=== PATIENT | male | born 1990 | race Caucasian/White ===

== ENCOUNTER 2021-12-27 21:55 | Inpatient (IN) | payer MEDICAID ==
[~2021-12-27] VITALS: Ht 180.3 cm; Wt 100.0 kg
[2021-12-27] MEDS ORDERED: PROPOFOL 10MG/ML 100ML 100 ML IV ONE (22:45)
[2021-12-27] MEDS ORDERED: SODIUM CHLORIDE 0.9% 1000ML BAG (SEPSIS BOLUS) IV ONE (22:45)
[2021-12-27] MEDS ORDERED: EPINEPHRINE 5 MG in SODIUM CHLORIDE 0.9% 245 ML IV PRN ×4 (22:45)
[2021-12-27 23:28] LABS: BASOPHILS % 0.7 % (0.0-2.0); EOSINOPHILS % 2.2 % (0.0-5.0); HEMOGLOBIN. 11.8 g/dL (14.0-18.0); LYMPHOCYTES % 56.7 % (20.0-50.0); MEAN CORPUSCULAR VOLUME 93.4 fL (80.0-94.0); MEAN PLATELET VOLUME 7.8 fl (7.4-10.4); MONOCYTES % 5.4 % (2.0-8.0); PLATELET 88 x1000/uL (130-400); RED BLOOD CELL COUNT 4.07 mill/uL (4.7-6.1); RED CELL DISTRIBUTION WIDTH 14.4 % (11.6-14.6)
[2021-12-27] MEDS ORDERED: ASPIRIN 325MG EC TABLET PO ONE (23:30)
[2021-12-27] MEDS ORDERED: NOREPINEPHRINE 8 MG in DEXT 5% WATER 242 ML IV PRN (23:30)
[2021-12-27] MEDS ORDERED: NOREPINEPHRINE 8MG/250ML PMX 250 ML IV ONE (23:30)
[2021-12-27 23:37] LABS: CHLORIDE 112 mEq/L (98-107)
[2021-12-27 23:38] LABS: INR 1.8; PROTHROMBIN TIME 18.6 sec (9.6-11.0)
[2021-12-27 23:46] LABS: ETHANOL BLOOD < 10 mg/dL
[2021-12-27] MEDS ORDERED: IOHEXOL-350 100 ML BOTTLE ONE (23:55)
[2021-12-28] MEDS ORDERED: VANCOMYCIN 1G PREMIX 200 ML IV SCH (00:45)
[2021-12-28] MEDS ORDERED: PIPERACILLIN/TAZ 3.375G PREMIX 50 ML IV ONE (00:45)
[2021-12-28] MEDS ORDERED: SODIUM BICARBONATE 100 MEQ in DEXTROSE 5% WATER 1,000 ML IV SCH (01:30)
[2021-12-28] MEDS ORDERED: DOPAMINE 400MG/250ML PREMIX 250 ML IV ONE (02:00)
[2021-12-28] MEDS ORDERED: NOREPINEPHRINE 8MG/250ML PMX 250 ML IV ONE (02:15)
[2021-12-28 02:30] VITALS: BP 65/32
== END 2021-12-28 03:33 | DRG 133 ==
LOC: ER 21:55 → EDBEDREQ 12-28 02:01 → EDBEDREQTM 12-28 02:01 → EDBEDREQSVC 12-28 02:01 → EDBD 12-28 03:33 → MICUSO 12-28 03:33
PROVIDERS: ADMIT Internal Medicine; ATTEND Internal Medicine
PROC: 0BH17EZ Insertion of Endotracheal Airway into Trachea, Via Natural or Artificial Opening (ICD-10-PCS; principal; 2021-12-28)
PROC: 5A1935Z Respiratory Ventilation, Less than 24 Consecutive Hours (ICD-10-PCS; 2021-12-28)
DX: J96.01 Acute respiratory failure with hypoxia (principal); I46.9 Cardiac arrest, cause unspecified; I26.99 Other pulmonary embolism without acute cor pulmonale; Z96.652 Presence of left artificial knee joint
CPT/HCPCS: 36415; 71045; 71275; 74174; 80053; 80320; 83605; 83880; 84145; 84484; 85025; 93005; 93970; 99291; J1265; J2543; J2704; J3490; J7030; J7050; J7070; Q9967; G0480